=== PATIENT | male | born 1960 | race Caucasian/White ===

== ENCOUNTER 2017-10-17 20:36 | Emergency (ER) | payer BC, MEDICAID ==
[~2017-10-17] VITALS: Ht 160 cm; Wt 74.0 kg
[2017-10-17] MEDS ORDERED: ACETAMINOPHEN 160 MG/5 ML UD CUP ONE (23:38)
[2017-10-18] MEDS ORDERED: SODIUM CHLORIDE 0.9% 500 ML IV ONE (07:57)
[2017-10-18 08:14] LABS: BASOPHILS % 0.3 % (0.0-2.0); EOSINOPHILS % 1.7 % (0.0-5.0); HEMATOCRIT. 34.7 % (42.0-52.0); HEMOGLOBIN. 12.1 g/dL (14.0-18.0); MEAN CORPUSCULAR HEMOGLOBIN 33.3 pg (28.0-32.0); MEAN CORPUSCULAR VOLUME 95.9 fL (80.0-94.0); MEAN PLATELET VOLUME 7.8 fl (7.4-10.4); MONOCYTES % 11.2 % (2.0-8.0); NEUTROPHILS % 39.8 % (40.0-76.0); PLATELET 159 x1000/uL (130-400); RED BLOOD CELL COUNT 3.62 mill/uL (4.7-6.1); RED CELL DISTRIBUTION WIDTH 12.5 % (11.6-14.6)
[2017-10-18 08:22] LABS: PARTIAL THROMBOPLASTIN TIME 25.9 sec (23.4-31.0); PROTHROMBIN TIME 9.9 sec (9.4-11.6)
[2017-10-18 08:30] LABS: CREATINE KINASE MB FRACTION 2.2 ng/mL (0.5-3.6); TROPONIN I 0.03 ng/mL (0.00-0.04)
[2017-10-18 09:45] VITALS: BP 166/89
== END 2017-10-18 10:00 | disposition home or self-care (01) ==
LOC: ER 22:11
DX: J06.9 Acute upper respiratory infection, unspecified (principal); D64.9 Anemia, unspecified; I10 Essential (primary) hypertension; M79.1 Myalgia; N28.9 Disorder of kidney and ureter, unspecified; E11.9 Type 2 diabetes mellitus without complications; H40.9 Unspecified glaucoma
CPT/HCPCS: 36415; 71045; 80048; 82550; 82553; 83880; 84484; 85025; 85610; 85730; 87804; 93005; 96360; 99285; J7030; J7040; Z7610

== ENCOUNTER 2020-07-08 16:48 | Emergency (ER) | payer MEDICARE, MEDICAID ==
[~2020-07-08] VITALS: Ht 160 cm; Wt 74.0 kg
[2020-07-08 16:51] VITALS: BP 178/93
== END 2020-07-08 18:59 | disposition home or self-care (01) ==
LOC: ER 16:48
DX: J12.9 Viral pneumonia, unspecified (principal); E11.9 Type 2 diabetes mellitus without complications; I10 Essential (primary) hypertension; H40.9 Unspecified glaucoma; Z90.49 Acquired absence of other specified parts of digestive tract
CPT/HCPCS: 93005; 99284; C9803; U0003

== ENCOUNTER 2020-07-11 02:28 | Inpatient (IN) | payer MEDICARE, MEDICAID ==
[~2020-07-11] VITALS: Ht 165.1 cm; Wt 91.9 kg
[2020-07-11] MEDS ORDERED: FAMOTIDINE 20MG/2ML VIAL IV ONE (03:45)
[2020-07-11] MEDS ORDERED: ONDANSETRON HCL 4MG/2ML INJ IV ONE (03:45)
[2020-07-11] MEDS ORDERED: CEFTRIAXONE 1 G PREMIX 50 ML IV ONE (04:00)
[2020-07-11] MEDS ORDERED: AZITHROMYCIN 500 MG in DEXT 5% WATER 250 ML IV ONE (04:00)
[2020-07-11] MEDS ORDERED: SODIUM CHLORIDE 0.9% 1000ML BAG (SEPSIS BOLUS) IV ONE (04:00)
[2020-07-11 04:09] LABS: CHLORIDE 97 mEq/L (98-107)
[2020-07-11 04:11] LABS: BASOPHILS % 0.4 % (0.0-2.0); EOSINOPHILS % 0.2 % (0.0-5.0); HEMATOCRIT. 33.3 % (42.0-52.0); HEMOGLOBIN. 11.2 g/dL (14.0-18.0); LYMPHOCYTES % 10.9 % (20.0-50.0); MEAN CORPUSCULAR HEMOGLOBIN 33.2 pg (28.0-32.0); MEAN CORPUSCULAR VOLUME 98.6 fL (80.0-94.0); MEAN PLATELET VOLUME 7.9 fl (7.4-10.4); MONOCYTES % 13.8 % (2.0-8.0); NEUTROPHILS % 74.7 % (40.0-76.0); PLATELET 261 x1000/uL (130-400); RED BLOOD CELL COUNT 3.38 mill/uL (4.7-6.1); RED CELL DISTRIBUTION WIDTH 12.7 % (11.6-14.6)
[2020-07-11] MEDS ORDERED: INSULIN REGULAR (HUMULIN R) 300UNITS/3ML IV ONE (04:45)
[2020-07-11] MEDS ORDERED: CALCIUM CHLORIDE 1GM/10ML SYR IV ONE (04:45)
[2020-07-11] MEDS ORDERED: SODIUM BICARBONATE 8.4% 1 MEQ/ML 50ML SYR IV ONE (04:45)
[2020-07-11] MEDS ORDERED: DEXTROSE 50% WATER 50ML SYRINGE IV ONE (04:45)
[2020-07-11] MEDS ORDERED: SODIUM BICARBONATE 4% (2.4MEQ) 5ML VIAL IV ONE (11:07)
[2020-07-11] MEDS ORDERED: CLON-457 PO (11:41)
[2020-07-11] MEDS ORDERED: AMLO10TA80 PO (11:41)
[2020-07-11] MEDS ORDERED: HYDR25TA MT (11:41)
[2020-07-11] MEDS ORDERED: ATOR40TA70 MT (11:41)
[2020-07-11] MEDS ORDERED: INSU3INS8 SUBCUT (11:43)
[2020-07-11 12:04] VITALS: BP 162/84
[2020-07-11 12:28] LABS: PARTIAL THROMBOPLASTIN TIME 33.2 sec (23.4-31.0); PROTHROMBIN TIME 10.5 sec (9.6-11.0)
[2020-07-11 12:40] LABS: CLARITY URINE TURBID (CLEAR); COLOR URINE DARK YELLOW (YELLOW); KETONES URINE TRACE (NEGATIVE); LEUKOCYTE ESTERASE URINE 1+ (NEGATIVE); NITRITE URINE NEGATIVE (NEGATIVE); OCCULT BLOOD URINE 3+ (NEGATIVE); PROTEIN URINE 4+ (NEGATIVE); SPECIFIC GRAVITY URINE 1.055 (1.005-1.030); UROBILINOGEN URINE 0.2 E.U./dL (0.2-1.0)
[2020-07-11 12:47] LABS: HEPATITIS B SURFACE AB < 3.1 mIU/mL
[2020-07-11 12:57] LABS: HEPATITIS B SURFACE ANTIGEN NEGATIVE
[2020-07-11 13:27] LABS: HEPATITIS A AB IGM NEGATIVE (NEGATIVE)
[2020-07-11] MEDS ORDERED: AMLODIPINE 10MG TABLET PO SCH (15:00)
[2020-07-11] MEDS ORDERED: MAGNESIUM/ALUMINUM HYDROXIDE/SIMETHICONE 30ML UDC PO PRN (15:30)
[2020-07-11] MEDS ORDERED: ACETAMINOPHEN 325MG TABLET PO PRN (15:30)
[2020-07-11] MEDS ORDERED: AZITHROMYCIN 500 MG in DEXT 5% WATER 250 ML IV SCH (15:30)
[2020-07-11] MEDS ORDERED: ONDANSETRON HCL 4MG/2ML INJ IV PRN (15:30)
[2020-07-11] MEDS ORDERED: DEXTROSE 50% WATER 50ML SYRINGE IV PRN ×2 (15:45)
[2020-07-11] MEDS: AMLODIPINE 10MG TABLET PO SCH (15:57)
[2020-07-11] MEDS: ATORVASTATIN CALCIUM 40MG TABLET PO SCH (15:57)
[2020-07-11 16:00] VITALS: BP 169/86
[2020-07-11] MEDS: BLOOD SUGAR DIAGNOSTIC STRIP TEST SCH ×2 (17:40→21:00)
[2020-07-11] MEDS: INSULIN LISPRO 100 UNITS/ML SUBCUT SCH ×2 (19:57→22:34)
[2020-07-11 20:00] VITALS: BP 179/90
[2020-07-11] MEDS: HEPARIN 5000 UNITS/ML VIAL SUBCUT SCH (22:33)
[2020-07-12] VITALS (7 sets, daily range): BP systolic 150–186; BP diastolic 79–90
[2020-07-12] MEDS: AZITHROMYCIN 250 MG in DEXT 5% WATER 250 ML IV SCH (01:53)
[2020-07-12] MEDS: CEFTRIAXONE 1,000 MG in DEXTROSE 5% WATER 50 ML IV SCH (07:22)
[2020-07-12] MEDS: BLOOD SUGAR DIAGNOSTIC STRIP TEST SCH ×4 (07:23→20:14)
[2020-07-12] MEDS: INSULIN LISPRO 100 UNITS/ML SUBCUT SCH ×4 (07:50→20:33)
[2020-07-12] MEDS: AMLODIPINE 10MG TABLET PO SCH (08:50)
[2020-07-12] MEDS: ASPIRIN 81MG TABLET PO SCH (08:50)
[2020-07-12] MEDS: ATORVASTATIN CALCIUM 40MG TABLET PO SCH (08:50)
[2020-07-12] MEDS: HEPARIN 5000 UNITS/ML VIAL SUBCUT SCH ×2 (08:51→20:35)
[2020-07-12 09:53] LABS: HEMATOCRIT. 30.5 % (42.0-52.0); HEMOGLOBIN. 10.7 g/dL (14.0-18.0); MEAN CORPUSCULAR HEMOGLOBIN 33.8 pg (28.0-32.0); MEAN CORPUSCULAR VOLUME 96.6 fL (80.0-94.0); MEAN PLATELET VOLUME 7.1 fl (7.4-10.4); PLATELET 294 x1000/uL (130-400); RED BLOOD CELL COUNT 3.15 mill/uL (4.7-6.1); RED CELL DISTRIBUTION WIDTH 12.5 % (11.6-14.6)
[2020-07-12] MEDS ORDERED: HYDRALAZINE HCL 100MG TABLET PO NR (12:30)
[2020-07-12] MEDS ORDERED: REGADENOSON 0.4 MG/5 ML IV ONE ×2 (13:15→13:50)
[2020-07-12 14:13] LABS: PLATELET ESTIMATE NORMAL
[2020-07-12] MEDS: HYDRALAZINE HCL 100MG TABLET PO SCH ×2 (16:00→18:14)
[2020-07-12 17:06] LABS: ANTI-NUCLEAR ANTIBODIES DIRECT Negative (Negative)
[2020-07-13] VITALS (17 sets, daily range): BP systolic 152–181; BP diastolic 79–93
[2020-07-13] MEDS: AZITHROMYCIN 250 MG in DEXT 5% WATER 250 ML IV SCH (01:41)
[2020-07-13] MEDS: HYDRALAZINE HCL 100MG TABLET PO SCH ×3 (05:10→23:50)
[2020-07-13] MEDS: CEFTRIAXONE 1,000 MG in DEXTROSE 5% WATER 50 ML IV SCH (06:13)
[2020-07-13] MEDS: BLOOD SUGAR DIAGNOSTIC STRIP TEST SCH ×4 (06:22→20:21)
[2020-07-13] MEDS: AMLODIPINE 10MG TABLET PO SCH ×2 (08:25→08:34)
[2020-07-13] MEDS: HEPARIN 5000 UNITS/ML VIAL SUBCUT SCH ×2 (08:25→23:52)
[2020-07-13] MEDS: ASPIRIN 81MG TABLET PO SCH ×2 (08:25→08:34)
[2020-07-13] MEDS: INSULIN LISPRO 100 UNITS/ML SUBCUT SCH ×4 (08:28→22:29)
[2020-07-13] MEDS: ATORVASTATIN CALCIUM 40MG TABLET PO SCH (08:33)
[2020-07-13 11:29] LABS: HEMATOCRIT. 29.3 % (42.0-52.0); MEAN CORPUSCULAR HEMOGLOBIN 33.3 pg (28.0-32.0); MEAN CORPUSCULAR VOLUME 97.2 fL (80.0-94.0); MEAN PLATELET VOLUME 7.3 fl (7.4-10.4); PLATELET 265 x1000/uL (130-400); RED BLOOD CELL COUNT 3.01 mill/uL (4.7-6.1); RED CELL DISTRIBUTION WIDTH 12.8 % (11.6-14.6)
[2020-07-13] MEDS ORDERED: REGADENOSON 0.4 MG/5 ML IV ONE (13:45)
[2020-07-13 14:15] LABS: PLATELET ESTIMATE NORMAL
[2020-07-13] MEDS ORDERED: LIDOCAINE HCL 1% 20ML VIAL (Pyxis) INJ ONE (15:02)
[2020-07-13] MEDS ORDERED: SODIUM BICARBONATE 4% (2.4MEQ) 5ML VIAL IV ONE (15:02)
[2020-07-13] MEDS ORDERED: FENTANYL CITRATE/PF 50MCG/ML 2ML VIAL ONE (15:30)
[2020-07-13] MEDS ORDERED: FENTANYL CITRATE/PF 50MCG/ML 2ML VIAL IV NR (15:30)
[2020-07-13] MEDS: MINOXIDIL 2.5MG TABLET PO SCH (23:51)
[2020-07-14] VITALS: BP 176/94
[2020-07-14] MEDS: AZITHROMYCIN 250 MG in DEXT 5% WATER 250 ML IV SCH (01:22)
[2020-07-14 04:00] VITALS: BP 162/85
[2020-07-14] MEDS: CEFTRIAXONE 1,000 MG in DEXTROSE 5% WATER 50 ML IV SCH (05:11)
[2020-07-14] MEDS: HYDRALAZINE HCL 100MG TABLET PO SCH ×3 (05:11→21:24)
[2020-07-14] MEDS: BLOOD SUGAR DIAGNOSTIC STRIP TEST SCH ×4 (06:32→21:24)
[2020-07-14 07:34] LABS: HEMATOCRIT. 29.9 % (42.0-52.0); HEMOGLOBIN. 10.2 g/dL (14.0-18.0); MEAN CORPUSCULAR HEMOGLOBIN 33.4 pg (28.0-32.0); MEAN CORPUSCULAR VOLUME 98.1 fL (80.0-94.0); MEAN PLATELET VOLUME 7.4 fl (7.4-10.4); PLATELET 274 x1000/uL (130-400); RED BLOOD CELL COUNT 3.05 mill/uL (4.7-6.1); RED CELL DISTRIBUTION WIDTH 12.3 % (11.6-14.6)
[2020-07-14 08:00] VITALS: BP 180/89
[2020-07-14] MEDS: ASPIRIN 81MG TABLET PO SCH (08:29)
[2020-07-14] MEDS: ATORVASTATIN CALCIUM 40MG TABLET PO SCH (08:29)
[2020-07-14] MEDS: HEPARIN 5000 UNITS/ML VIAL SUBCUT SCH ×2 (08:30→21:24)
[2020-07-14] MEDS: MINOXIDIL 2.5MG TABLET PO SCH ×2 (08:32→21:23)
[2020-07-14] MEDS: INSULIN LISPRO 100 UNITS/ML SUBCUT SCH ×4 (08:33→21:36)
[2020-07-14] MEDS: AMLODIPINE 10MG TABLET PO SCH (08:33)
[2020-07-14 12:00] VITALS: BP 148/74
[2020-07-14 12:31] LABS: PLATELET ESTIMATE NORMAL
[2020-07-14 16:00] VITALS: BP 135/68
[2020-07-14 20:33] VITALS: BP 127/73
[2020-07-15 00:25] VITALS: BP 141/69
[2020-07-15 04:00] VITALS: BP 109/67
[2020-07-15] MEDS: CEFTRIAXONE 1,000 MG in DEXTROSE 5% WATER 50 ML IV SCH (05:29)
[2020-07-15] MEDS: HYDRALAZINE HCL 100MG TABLET PO SCH ×2 (05:35→13:03)
[2020-07-15] MEDS: BLOOD SUGAR DIAGNOSTIC STRIP TEST SCH ×2 (07:08→12:16)
[2020-07-15] MEDS: INSULIN LISPRO 100 UNITS/ML SUBCUT SCH ×2 (07:50→12:16)
[2020-07-15 08:00] VITALS: BP 128/63
[2020-07-15] MEDS ORDERED: AZITHROMYCIN 250 MG TABLET PO SCH (09:00)
[2020-07-15] MEDS: ASPIRIN 81MG TABLET PO SCH (09:28)
[2020-07-15] MEDS: ATORVASTATIN CALCIUM 40MG TABLET PO SCH (09:29)
[2020-07-15] MEDS: MINOXIDIL 2.5MG TABLET PO SCH (09:30)
[2020-07-15] MEDS: AMLODIPINE 10MG TABLET PO SCH (09:30)
[2020-07-15] MEDS: HEPARIN 5000 UNITS/ML VIAL SUBCUT SCH (11:37)
[2020-07-15 12:00] VITALS: BP 137/70
[2020-07-15 12:13] LABS: BASOPHILS % 0.9 % (0.0-2.0); EOSINOPHILS % 4.7 % (0.0-5.0); HEMATOCRIT. 27.3 % (42.0-52.0); HEMOGLOBIN. 9.5 g/dL (14.0-18.0); LYMPHOCYTES % 23.9 % (20.0-50.0); MEAN CORPUSCULAR HEMOGLOBIN 33.7 pg (28.0-32.0); MEAN CORPUSCULAR VOLUME 97.5 fL (80.0-94.0); MONOCYTES % 14.2 % (2.0-8.0); NEUTROPHILS % 56.3 % (40.0-76.0); PLATELET 277 x1000/uL (130-400); RED CELL DISTRIBUTION WIDTH 12.4 % (11.6-14.6)
[2020-07-15 16:00] VITALS: BP 157/62
[2020-07-15 16:10] VITALS: BP 157/62
== END 2020-07-15 17:20 | disposition home or self-care (01) | DRG 193 ==
LOC: ER 02:28 → 7WST 05:14 → EDBEDREQ 05:16 → ENRESERV 07:47 → 6WST 23:31
PROVIDERS: ADMIT Internal Medicine; ATTEND Internal Medicine
PROC: 5A1D70Z Performance of Urinary Filtration, Intermittent, Less than 6 Hours Per Day (ICD-10-PCS; principal; 2020-07-11)
PROC: 5A1D70Z Performance of Urinary Filtration, Intermittent, Less than 6 Hours Per Day (ICD-10-PCS; 2020-07-12)
PROC: 05HY33Z Insertion of Infusion Device into Upper Vein, Percutaneous Approach (ICD-10-PCS; 2020-07-14)
PROC: 0JHD3XZ Insertion of Tunneled Vascular Access Device into Right Upper Arm Subcutaneous Tissue and Fascia, Percutaneous Approach (ICD-10-PCS; 2020-07-14)
PROC: 02HV33Z Insertion of Infusion Device into Superior Vena Cava, Percutaneous Approach (ICD-10-PCS; 2020-07-14)
PROC: B5181ZA Fluoroscopy of Superior Vena Cava using Low Osmolar Contrast, Guidance (ICD-10-PCS; 2020-07-14)
PROC: 02PY33Z Removal of Infusion Device from Great Vessel, Percutaneous Approach (ICD-10-PCS; 2020-07-14)
PROC: 5A1D70Z Performance of Urinary Filtration, Intermittent, Less than 6 Hours Per Day (ICD-10-PCS; 2020-07-15)
DX: J18.9 Pneumonia, unspecified organism (principal); N18.6 End stage renal disease; E43 Unspecified severe protein-calorie malnutrition; I24.8 Other forms of acute ischemic heart disease; I12.0 Hypertensive chronic kidney disease with stage 5 chronic kidney disease or end stage renal disease; E87.1 Hypo-osmolality and hyponatremia; N39.0 Urinary tract infection, site not specified; N17.9 Acute kidney failure, unspecified; E87.2 Acidosis; E87.5 Hyperkalemia; D63.8 Anemia in other chronic diseases classified elsewhere; E11.22 Type 2 diabetes mellitus with diabetic chronic kidney disease; E78.5 Hyperlipidemia, unspecified; Z20.828 Contact with and (suspected) exposure to other viral communicable diseases; E87.8 Other disorders of electrolyte and fluid balance, not elsewhere classified; I16.0 Hypertensive urgency; E78.00 Pure hypercholesterolemia, unspecified; E87.70 Fluid overload, unspecified; Z68.33 Body mass index [BMI] 33.0-33.9, adult; Z99.2 Dependence on renal dialysis; Z79.899 Other long term (current) drug therapy
CPT/HCPCS: 36415; 36556; 36558; 36589; 71045; 74176; 76937; 77001; 78452; 80048; 80053; 80061; 81003; 82533; 82728; 82962; 83036; 83605; 83880; 83930; 83935; 84145; 84439; 84443; 84484; 85025; 86038; 86160; 86705; 86706; 86709; 86803; 87340; 93005; 93017; 93306; 93970; 97116; 97161; 99152; 99153; 99284; 99291; A9500; C1750; C1752; C1769; J0456; J0696; J1642; J1644; J1815; J2405; J2785; J3010; J3490; J7030; J7060; C9803-CS; G0500; U0003-CS

== ENCOUNTER 2021-01-21 10:00 | Emergency (ER) | payer MEDICARE, MEDICAID ==
[~2021-01-21] VITALS: Ht 162.6 cm; Wt 62.0 kg
[~2021-01-21 10:00] MED LIST: AMLO10TA80 PO; ATOR40TA70 MT; CLON-457 PO; HYDR25TA MT; INSU3INS8 SUBCUT
[2021-01-21] MEDS ORDERED: ACETAMINOPHEN 325MG TABLET PO ONE (10:45)
[2021-01-21] MEDS ORDERED: TOPUD MT (12:22)
[2021-01-21 12:52] VITALS: BP 174/90
== END 2021-01-21 12:52 | disposition home or self-care (01) ==
LOC: ER 10:50
DX: M25.512 Pain in left shoulder (principal); E11.22 Type 2 diabetes mellitus with diabetic chronic kidney disease; I12.0 Hypertensive chronic kidney disease with stage 5 chronic kidney disease or end stage renal disease; N18.6 End stage renal disease; Z99.2 Dependence on renal dialysis; Z79.4 Long term (current) use of insulin
CPT/HCPCS: 73030; 99283

== ENCOUNTER 2024-03-28 20:54 | Emergency (ER) | payer MEDICAID, MEDICARE ==
[~2024-03-28] VITALS: Ht 160 cm; Wt 70.0 kg
[~2024-03-28 20:54] MED LIST changes: -CLON-457 PO; +CLON-493 PO; +TOPUD MT
[2024-03-28 21:07] VITALS: BP 158/77; PULSE 73; RESP 18; TEMP 98.8; O2SAT 94
[2024-03-28 22:01] LABS: DIFFERENTIAL COMMENT 0; EOSINOPHILS % 2.4 % (0.0-5.0); HEMATOCRIT. 32.8 % (42.0-52.0); HEMOGLOBIN. 11.3 g/dL (14.0-18.0); MEAN CORPUSCULAR HEMOGLOBIN 35.3 pg (28.0-32.0); MEAN CORPUSCULAR HGB CONC 34.5 g/dL (31.0-37.0); MEAN CORPUSCULAR VOLUME 102.5 fL (80.0-94.0); MEAN PLATELET VOLUME 8.1 fl (7.4-10.4); MONOCYTES % 10.1 % (2.0-8.0); NEUTROPHILS % 56.5 % (40.0-76.0); PLATELET 139 x1000/uL (130-400); WHITE BLOOD COUNT 7.5 x1000/uL (4.5-11.0)
[2024-03-28 22:12] LABS: INR 0.9; PARTIAL THROMBOPLASTIN TIME 24.6 sec (23.4-31.0); PROTHROMBIN TIME 10.3 sec (9.6-11.0)
[2024-03-28 22:17] LABS: POTASSIUM 4.6 mEq/L (3.5-5.1)
[2024-03-28 22:18] LABS: CALCIUM 9.3 mg/dL (8.7-10.4)
[2024-03-28 22:38] LABS: CREATININE 6.2 mg/dL (0.6-1.3)
== END 2024-03-28 23:59 | disposition home or self-care (01) ==
LOC: ER 20:54
DX: T82.838A Hemorrhage due to vascular prosthetic devices, implants and grafts, initial encounter (principal); I12.0 Hypertensive chronic kidney disease with stage 5 chronic kidney disease or end stage renal disease; E11.22 Type 2 diabetes mellitus with diabetic chronic kidney disease; N18.6 End stage renal disease; Z99.2 Dependence on renal dialysis; X58.XXXA Exposure to other specified factors, initial encounter; Z79.899 Other long term (current) drug therapy
CPT/HCPCS: 80048; 85025; 85610; 85730; 36415; 99283; Z7610

== ENCOUNTER 2025-09-13 17:49 | Inpatient (IN) | payer MEDICARE, MEDICAID ==
[~2025-09-13] VITALS: Ht 160 cm; Wt 63.5 kg
[~2025-09-13 17:49] MED LIST changes: +HYDR100T31 PO; +NIFE-71 PO
[2025-09-13 18:08] VITALS: O2SAT 100
[2025-09-13 18:58] LABS: BASOPHILS % 1.1 % (0.0-2.0); EOSINOPHILS % 1.3 % (0.0-5.0); HEMATOCRIT. 34.2 % (42.0-52.0); HEMOGLOBIN. 11.3 g/dL (14.0-18.0); LYMPHOCYTES % 16.1 % (20.0-50.0); MEAN PLATELET VOLUME 7.4 fl (7.4-10.4); MONOCYTES % 11.0 % (2.0-8.0); NEUTROPHILS % 70.5 % (40.0-76.0); PLATELET 210 x1000/uL (130-400); RED BLOOD CELL COUNT 3.53 mill/uL (4.7-6.1); RED CELL DISTRIBUTION WIDTH 14.6 % (11.6-14.6)
[2025-09-13 19:13] LABS: UREA NITROGEN BLOOD 10 mg/dL (9-23)
[2025-09-13 19:14] LABS: ASPARTATE AMINOTRANSFERASE 9 IU/L (<34); PROTEIN TOTAL 7.8 g/dL (6.0-8.3)
[2025-09-13 19:15] LABS: BILIRUBIN DIRECT 0.4 mg/dL (<=3.0); BILIRUBIN TOTAL 1.0 mg/dL (0.1-1.0); TROPONIN I HIGH SENSITIVITY 46 ng/L (3.0-53)
[2025-09-13 19:20] LABS: CREATININE 3.4 mg/dL (0.6-1.3)
[2025-09-13] MEDS: ONDANSETRON HCL 4MG/2ML INJ IV ONE (19:35)
[2025-09-13] MEDS ORDERED: HYDROCODONE/ACETAMINOPHEN 5/325MG TABLET PO PRN (22:00)
[2025-09-13] MEDS ORDERED: CLONIDINE 0.1MG TABLET PO PRN (22:00)
[2025-09-13] MEDS ORDERED: ACETAMINOPHEN 325MG TABLET PO PRN (22:00)
[2025-09-13] MEDS ORDERED: MORPHINE SULFATE 2 MG/ML INJ (NOT FOR IM USE) IV PRN (22:00)
[2025-09-13] MEDS ORDERED: MAGNESIUM/ALUMINUM HYDROXIDE/SIMETHICONE 30ML UDC PO PRN (22:00)
[2025-09-13] MEDS ORDERED: ONDANSETRON HCL 4MG/2ML INJ IV PRN (22:00)
[2025-09-13] MEDS ORDERED: DEXTROSE 50% WATER 50ML SYRINGE IV PRN (22:00)
[2025-09-13] MEDS ORDERED: NALOXONE HCL 0.4MG/ML VIAL IV PRN (22:15)
[2025-09-13] MEDS: CLONIDINE 0.1MG TABLET PO PRN (23:51)
[2025-09-14] VITALS (7 sets, daily range): BP systolic 122–204; BP diastolic 77–98; PULSE 62–92; RESP 18–19; TEMP 36.1–37.7; O2SAT 93–100
[2025-09-14 04:14] LABS: CREATININE 4.1 mg/dL (0.6-1.3); UREA NITROGEN BLOOD 12.0 mg/dL (9-23)
[2025-09-14 04:18] LABS: BASOPHILS % 0.8 % (0.0-2.0); EOSINOPHILS % 1.0 % (0.0-5.0); HEMATOCRIT. 32.0 % (42.0-52.0); HEMOGLOBIN. 10.4 g/dL (14.0-18.0); LYMPHOCYTES % 16.9 % (20.0-50.0); MEAN PLATELET VOLUME 7.5 fl (7.4-10.4); MONOCYTES % 12.3 % (2.0-8.0); NEUTROPHILS % 69.0 % (40.0-76.0); PLATELET 181 x1000/uL (130-400); RED BLOOD CELL COUNT 3.27 mill/uL (4.7-6.1); RED CELL DISTRIBUTION WIDTH 14.9 % (11.6-14.6)
[2025-09-14 04:54] LABS: HEPATITIS C AB NON REACTIVE (Neg) (Negative)
[2025-09-14] MEDS: DEXT 5%/0.45% NACL 1000ML 1,000 ML IV SCH (05:34)
[2025-09-14] MEDS: METOCLOPRAMIDE HCL 10MG/2ML VIAL IV SCH (05:34)
[2025-09-14] MEDS: BLOOD SUGAR DIAGNOSTIC STRIP TEST SCH (07:20)
[2025-09-14] MEDS: INSULIN LISPRO 100 UNITS/ML SUBCUT SCH (07:50)
[2025-09-14] MEDS: PANTOPRAZOLE SODIUM 40 MG/VIAL IV SCH (09:16)
[2025-09-14 20:01] LABS: COLOR URINE YELLOW (YELLOW); GLUCOSE URINE TRACE (NEGATIVE); KETONES URINE NEGATIVE (NEGATIVE); LEUKOCYTE ESTERASE URINE NEGATIVE (NEGATIVE); NITRITE URINE NEGATIVE (NEGATIVE); OCCULT BLOOD URINE TRACE (NEGATIVE); PH URINE >=9.0 (4.5-8.0); PROTEIN URINE 3+ (NEGATIVE); SPECIFIC GRAVITY URINE 1.010 (1.005-1.030); UROBILINOGEN URINE 0.2 E.U./dL (0.2-1.0)
[2025-09-14 20:38] LABS: *AMPHETAMINES SCREEN URINE NEGATIVE (NEGATIVE); *BARBITURATES SCREEN URINE NEGATIVE (NEGATIVE); *BENZODIAZEPINES SCREEN URINE NEGATIVE (NEGATIVE); *COCAINE SCREEN URINE NEGATIVE (NEGATIVE); CANNABINOID URINE SCREEN NEGATIVE (NEGATIVE); ECSTASY MDMA SCREEN URINE NEGATIVE (NEGATIVE); METHADONE URINE SCREEN NEGATIVE (NEGATIVE); OPIATES URINE SCREEN NEGATIVE (NEGATIVE); PHENCYCLIDINE URINE SCREEN NEGATIVE (NEGATIVE)
[2025-09-14 20:47] LABS: CLARITY URINE HAZY (CLEAR)
[2025-09-14 20:48] LABS: WBC URINE 0-2 /hpf (0-2)
[2025-09-14 20:49] LABS: BACTERIA URINE TRACE; MUCUS URINE TRACE /lpf (NONE/TRACE); RBC URINE 0-2 /hpf (0-2); SQUAMOUS EPITHELIAL CELL URINE 1+ /lpf (RARE/1+)
[2025-09-14] MEDS: ENOXAPARIN 30MG/0.3ML SYR SUBCUT SCH (22:34)
[2025-09-14] MEDS: ZOLPIDEM TARTRATE 5MG TABLET PO PRN (22:35)
[2025-09-15] VITALS (15 sets, daily range): BP systolic 130–200; BP diastolic 67–170; PULSE 59–82; RESP 16–19; TEMP 35.6–36.78072; O2SAT 96–100
[2025-09-15] MEDS: NIFEDIPINE XL 30MG TAB PO SCH (10:15)
[2025-09-15 11:18] LABS: BASOPHILS % 0.8 % (0.0-2.0); EOSINOPHILS % 2.3 % (0.0-5.0); HEMATOCRIT. 26.9 % (42.0-52.0); HEMOGLOBIN. 9.1 g/dL (14.0-18.0); LYMPHOCYTES % 13.3 % (20.0-50.0); MEAN PLATELET VOLUME 7.8 fl (7.4-10.4); MONOCYTES % 11.9 % (2.0-8.0); NEUTROPHILS % 71.7 % (40.0-76.0); PLATELET 162 x1000/uL (130-400); RED BLOOD CELL COUNT 2.73 mill/uL (4.7-6.1); RED CELL DISTRIBUTION WIDTH 14.5 % (11.6-14.6)
[2025-09-15 11:32] LABS: UREA NITROGEN BLOOD 23.0 mg/dL (9-23)
[2025-09-15 11:33] LABS: CREATININE 5.7 mg/dL (0.6-1.3)
[2025-09-15] MEDS: HYDRALAZINE HCL 100MG TABLET PO SCH (13:00)
[2025-09-15 14:37] LABS: HEPATITIS A AB IGM NEGATIVE (Negative)
[2025-09-15 14:38] LABS: HEPATITIS B CORE AB IGM NEGATIVE (Negative); HEPATITIS C AB NON REACTIVE (Neg) (Negative)
[2025-09-16] VITALS: BP 135/69; PULSE 70; RESP 19; TEMP 36.3; O2SAT 97
[2025-09-16] MEDS: ATORVASTATIN CALCIUM 40MG TABLET PO SCH (00:52)
[2025-09-16] MEDS: EPOETIN ALFA 4,000 UNITS/ML VIAL SUBCUT SCH (00:52)
[2025-09-16 04:00] VITALS: BP 175/66; PULSE 66; RESP 18; TEMP 36.7; O2SAT 98
[2025-09-16 07:09] LABS: BASOPHILS % 0.8 % (0.0-2.0); EOSINOPHILS % 2.3 % (0.0-5.0); HEMATOCRIT. 27.5 % (42.0-52.0); HEMOGLOBIN. 9.2 g/dL (14.0-18.0); LYMPHOCYTES % 15.0 % (20.0-50.0); MEAN PLATELET VOLUME 7.6 fl (7.4-10.4); MONOCYTES % 14.5 % (2.0-8.0); NEUTROPHILS % 67.4 % (40.0-76.0); PLATELET 185 x1000/uL (130-400); RED BLOOD CELL COUNT 2.82 mill/uL (4.7-6.1); RED CELL DISTRIBUTION WIDTH 14.3 % (11.6-14.6)
[2025-09-16 07:24] LABS: CREATININE 4.8 mg/dL (0.6-1.3); UREA NITROGEN BLOOD 18.0 mg/dL (9-23)
[2025-09-16] MEDS ORDERED: HYDROCHLOROTHIAZIDE 25MG TABLET PO SCH (09:00)
[2025-09-16] MEDS: METOCLOPRAMIDE HCL 10MG/2ML VIAL IV ONE (10:45)
[2025-09-16] MEDS: NIFEDIPINE XL 60MG TAB PO SCH (10:51)
[2025-09-16 10:56] VITALS: BP 169/78; PULSE 66; TEMP 97.2
[2025-09-16] MEDS ORDERED: LOSARTAN 50 MG TABLET PO SCH (13:00)
[2025-09-16 16:00] VITALS: BP 135/64; PULSE 129; RESP 17; TEMP 36.3; O2SAT 97
[2025-09-16] MEDS ORDERED: NIFEDIPINE XL 60MG TAB PO SCH ×2 (21:00)
[2025-09-16] MEDS ORDERED: CARVEDILOL 6.25 MG TABLET PO SCH (21:00)
== END 2025-09-16 11:15 | disposition home or self-care (01) | DRG 73 ==
LOC: ER 17:49 → 6WST 21:31 → EDBEDREQ 21:36 → EDBEDREQTM 21:36 → ENRESERV 22:28
PROVIDERS: ADMIT Internal Medicine; ATTEND Internal Medicine
PROC: 5A1D70Z Performance of Urinary Filtration, Intermittent, Less than 6 Hours Per Day (ICD-10-PCS; principal; 2025-09-15)
DX: E11.43 Type 2 diabetes mellitus with diabetic autonomic (poly)neuropathy (principal); N18.6 End stage renal disease; E87.3 Alkalosis; E11.22 Type 2 diabetes mellitus with diabetic chronic kidney disease; D64.9 Anemia, unspecified; E11.65 Type 2 diabetes mellitus with hyperglycemia; Z99.2 Dependence on renal dialysis; I12.9 Hypertensive chronic kidney disease with stage 1 through stage 4 chronic kidney disease, or unspecified chronic kidney disease; K31.84 Gastroparesis; E78.00 Pure hypercholesterolemia, unspecified; E78.5 Hyperlipidemia, unspecified; Z79.899 Other long term (current) drug therapy
CPT/HCPCS: 36415; 71045; 74176; 80048; 80076; 80305; 81003; 82962; 83735; 83880; 84443; 84484; 85025; 86705; 86709; 86850; 86900; 87340; 90935; 93005; 93306; 93970; 96374; 99285; A4615; J0885; J1650; J1815; J2405; J2470; J2765